=== PATIENT | female | born 1935 | race African-American/Black ===

== ENCOUNTER 2017-06-04 07:28 | Emergency (ER) | payer OTHER ==
[~2017-06-04] VITALS: Ht 157.5 cm; Wt 181.4 kg
[~2017-06-04 07:28] MED LIST: 8 HOUR C500 MG PO; ACETAMINOPHEN PO; ACETAMINOPHEN325 M1 GT; ACETAMINOPHEN650 M7 PO; ACIDOPHILUS1 EAC4 GT; ADVAIR HFA120 INHALA IH; ALPRAZOLAM0.25 M2 GT; AMBIEN5 MG PO; AMIKACIN IV; AQUAPHOR W-NAT50 GM TP; ARTIFICIAL TEAR15 M1 BOTH EYES; ASCORBIC ACID250 MG PO; ATIVAN1 MG PO; Advair HFA 115/21 IH; Ascorbic Acid,Ester- PO; BACTRIM,SEPT1 TABLET GT; BACTRIM,SEPT1 TABLET PO; BISAC-EVAC10 MG PR; CALCIUM CITRAT1 EA14 GT; CALCIUM600 M1 GT; CALTRATE 600 +1 EAC1 GT; CALTRATE 600+D1 EACH; CALTRATE 6001 TABLE1 GT; CALTRATE 600600 MG PO; CARDIZEM CD,CA180 MG PO; CARDIZEM CD180 MG PO; CARDIZEM60 MG GT; CARDIZEM60 MG PO; CARDIZEM90 MG GT; CERTA-VITE240 ML GT; CERTA-VITE240 ML PO; CHLORHEXIDINE473 ML PO; COLACE10 MG/ML GT; COLACE100 MG PO; COMBIGAN O20 DROP/5 BOTH EYES; COUGH CONT100 MG/5 M GT; COUGH SYRU100 MG/5 M GT; COUMADIN,JANTOVE2 MG PO; COUMADIN1 MG GT; COUMADIN1 MG PO; COUMADIN10 MG PO; COUMADIN3 MG PO; COUMADIN4 MG GT; COUMADIN6 MG GT; COUMADIN6 MG PO; COUMADIN7.5 MG PO; CRANBERRY400 M1 GT; Colace PO; Combigan Ophth Soln BOTH EYES; Coumadin Protocol PO; DELSYM30 MG/5 M1 PO; DEXTROSE 50%50 ML IV; DIGITEK125 MC2 GT; DIGOX125 MCG GT; DIGOX250 MCG GT; DIGOX250 MCG PO; DIGOXIN125 MCG PO; DIGOXIN250 MCG PO; DIOVAN40 MG PO; DOCU LIQUI50 MG/5 ML GT; DOCUSATE SODIU100 MG PO; DORIBAX500 MG IV; DULCOLAX10 MG PR; DUONEB 2.5-0.5 M3 ML AEROSOL; DUONEB 2.5-0.5 M3 ML IH; ESCITALOPRAM OX20 MG GT; FEOSOL300 MG/5 M PO; FEOSOL325 MG PO; FEOSOL44 MG/ML PO; FEROSUL325 MG GT; FERROUS SULFAT325 MG GT; FERROUS SULFAT325 MG PO; FLORANEX CHE1 TABLET GT; FLORANEX GRANU1 EACH GT; FLORANEX GRANU1 EACH PO; FUROSEMIDE40 MG GT; GENTAMICIN IV; GLUCAGEN1 M1 PO; GLUCAGEN1 MG IM; GUAIFENESIN AC PO; HYDRALAZINE HCL25 MG GT; HYDROCIL INSTA1 EAC1 PO; IOPHEN NR100 MG/5 M; IRON325 M1 GT; JANTOVEN3 MG PO; K-DUR20 MEQ GT; K-DUR20 MEQ PO; KLOR-CON M2020 MEQ GT; KLOR-CON M2020 MEQ PO; KLOR-CON20 MEQ GT; KLOR-CON20 MEQ PO; LANTUS (UNITS)1 UNIT SC; LASIX40 MG GT; LASIX40 MG PO; LATANOPROST2.5 ML BOTH EYES; LAXATIVE SUPPOS10 MG PR; LEVEMIR FL100 UNIT/1 SC; LEVEMIR100 UNIT/2 SC; LEXAPRO20 MG GT; LEXAPRO20 MG PO; LISINOPRIL5 MG PO; LOMOTIL TABLET1 EACH PO; LORATADINE10 M2 PO; LORAZEPAM0.5 MG PO; LUMIGAN 0.50 DROP/22 BOTH EYES; Lasix PO; Lexapro PO; MEROPENEM1 GM IV; METFORMIN HCL1000 MG PO; MEXSANA330 GM TP; MILK OF MAGN PO; MIRALAX17 GM PO; MUCINEX D ER T1 EACH PO; MUCOMYST 20200 MG/ML IH; MUTIVITAMIN PO; NEBCIN40 MG/ML IV; NOVOLIN N100 UNITS/ SC; NOVOLOG 10100 UNITS/ SC; OS-CAL 500+D T1 EAC1 PO; PAIN RELIEF650 MG GT; PHILLIPS'400 MG/5 M PO; POTASSIUM CHLO20 ME2 GT; POTASSIUM CHLO20 MEQ GT; PREDNISONE20 MG GT; PREDNISONE20 MG PO; PREDNISONE5 MG PO; PREVACID SOLUTA30 MG GT; PREVACID SOLUTA30 MG PO; PREVACID30 MG PO; PRILOSEC40 MG PO; PROPOXYPHENE PO; PSEUDOEPHEDRINE60 MG PO; RANITIDINE HCL150 MG GT; RANITIDINE HCL150 MG PO; RISPERDAL3 MG PO; RISPERIDONE4 MG PO; ROBITUSSIN100 MG/5 M PO; SENNA-GEN8.6 MG GT; SENNA8.6 M1 GT; SENNA8.6 MG GT; SENNA8.6 MG PO; SILTUSSIN100 MG/51 GT; SILVER SULFADIA50 GM TP; SOLU-MEDRO40 MG/1 ML IV; TOBRAMYCIN60 MG/50 M IV; TYLENOL REGULA325 MG GT; TYLENOL REGULA325 MG PO; ULTRAM50 MG PO; VANCOCIN 250 M250 MG GT; VANCOMYCIN HCL1 GM IV; VITAMIN C100 MG/1 M GT; VITAMIN C500 MG/15 GT; VITAMIN D1000 INTUN PO; VITAMIN D1000 UNIT GT; VITAMIN D31000 UNIT PO; Vitamin D PO; WELLBUTRIN100 MG PO; XALATAN 0.50 DROP/2. BOTH EYES; XALATAN2.5 ML BOTH EYES; XANAX0.25 MG GT; XANAX0.5 MG GT; XARELTO20 MG GT; Xylocaine 5% TP; ZANTAC150 MG GT; ZOSYN 3.373.375 GM/5 IV; ZOSYN 4.5 GRAM4.5 GM IV; [UNRECOGNIZED DRUG - OTHER] TP
[2017-06-04 08:00] LABS: HEMATOCRIT 29.2 % (36.0-46.0); MCH 31.2 PG (29.0-34.0); MCHC 32.9 G/DL (30.0-36.0); MCV 94.8 FL (83-99); MEAN PLAT.VOLUME 9.6 uM^3 (9.5-12.4); PLATELET COUNT 106 K/uL (156-360); RBC DIS.WIDTH-CV 14.2 % (11.8-14.6); RBC DIS.WIDTH-SD 49.4 % (39-53); RED BLOOD COUNT 3.08 M/uL (3.80-5.20); WHITE BLOOD COUNT 14.9 K/uL (4.1-10.2)
[2017-06-04 08:26] LABS: ANION GAP 5 MEQ/L (2-14); CHLORIDE 107 MEQ/L (99-109); POTASSIUM 4.8 MEQ/L (3.7-5.4); SAMPLE HEMOLYSIS CHECK 0; SAMPLE ICTERIC CHECK 0; SAMPLE LIPEMIA CHECK 0; SODIUM 139 MEQ/L (136-147)
[2017-06-04 08:32] LABS: GFR ESTIMATE (CALCULATED) > 59 mL/min/; GLUCOSE 125 mg/dL (70-99); UREA NITROGEN (BUN) 34 mg/dL (9-23)
[2017-06-04 08:35] LABS: TROP-I INTERPRETATION NEGATIVE; TROPONIN-I 0.07 ng/mL (0.0-0.30)
[2017-06-04 08:37] LABS: DIGOXIN 0.6 ng/mL (0.8-2.0)
[2017-06-04 09:19] LABS: ADD MIUA? YES; BILIRUBIN NEGATIVE; BLOOD MODERATE; COLOR YELLOW ((YELLOW)); GLUCOSE (STRIP) NEGATIVE; KETONES NEGATIVE; LEUKOCYTES LARGE; NITRITE NEGATIVE; PROTEIN (STRIP) 100; UROBILINOGEN 0.2 MG/DL (0.2-1.0)
[2017-06-04 09:24] LABS: BACTERIA 3+ /HPF; EPITHELIAL CELLS RARE /HPF; MUCUS TRACE /LPF; RED BLOOD CELLS 20-30 /HPF (0-5)
[2017-06-04 09:25] LABS: WHITE BLOOD CELLS 30-40 /HPF (0-5)
[2017-06-04] MEDS ORDERED: KEFLEX500 MG PO (11:30)
[2017-06-04 13:06] VITALS: BP 140/65
== END 2017-06-04 13:14 ==
LOC: EME 07:28
PROVIDERS: Nurse Practitioner Family
DX: R41.82 Altered mental status, unspecified (principal); N39.0 Urinary tract infection, site not specified; E11.65 Type 2 diabetes mellitus with hyperglycemia; D72.829 Elevated white blood cell count, unspecified; J44.9 Chronic obstructive pulmonary disease, unspecified; Z99.11 Dependence on respirator [ventilator] status; I48.91 Unspecified atrial fibrillation; E66.01 Morbid (severe) obesity due to excess calories; Z87.442 Personal history of urinary calculi; Z86.718 Personal history of other venous thrombosis and embolism; Z79.01 Long term (current) use of anticoagulants; F32.9 Major depressive disorder, single episode, unspecified; F41.9 Anxiety disorder, unspecified; K21.9 Gastro-esophageal reflux disease without esophagitis; Z88.6 Allergy status to analgesic agent; Z79.4 Long term (current) use of insulin
CPT/HCPCS: 70450; 71010; 80048; 80162; 81003; 83605; 84484; 85027; 87077; 87086; 87186; 93005; 94002; 94640; 99281; 99285; J0696

== ENCOUNTER 2017-09-25 03:23 | Inpatient (IN) | payer OTHER ==
[~2017-09-25] VITALS: Ht 170.2 cm; Wt 115.3 kg
[2017-09-25] VITALS (11 sets, daily range): BP systolic 161–206; BP diastolic 65–132
[~2017-09-25 03:23] MED LIST changes: +C-500500 M1 GT; +CERTA VITE9 MG/15 ML GT; -COUGH CONT100 MG/5 M GT; +FEROSUL220 MG/51 GT; +KEFLEX500 MG PO; +PREDNISONE10 MG PO; +PRILOSEC20 MG GT; +XARELTO15 MG GT; +ZITHROMAX500 MG GT; +ZOFRAN4 MG GT; +ZOSYN 3.3753.375 GM IV
[2017-09-25 03:58] LABS: BASOPHIL COUNT 0.1 K/uL (0-0.1); EOSINOPHIL (%) 0.7 % (0-5); EOSINOPHIL COUNT 0.1 K/uL (0-0.3); HEMATOCRIT 29.6 % (36.0-46.0); IMMATURE GRANULOCYTE (%) 1.4 % (0.0-0.7); IMMATURE GRANULOCYTE COUNT 0.2 K/uL; INSTRUMENT ABS NEUTROPHIL CT 10.6 K/uL; LYMPHOCYTE COUNT 2.5 K/uL (1.0-2.8); MCH 30.1 PG (29.0-34.0); MCHC 32.8 G/DL (30.0-36.0); MCV 91.9 FL (83-99); MONOCYTE (%) 7.9 % (3-12); MONOCYTE COUNT 1.2 K/uL (0-0.8); NEUTROPHIL (%) 72.6 % (45-76); NEUTROPHIL COUNT 10.6 K/uL (1.8-6.4); PLATELET COUNT 165 K/uL (156-360); RBC DIS.WIDTH-SD 54.4 % (39-53); RED BLOOD COUNT 3.22 M/uL (3.80-5.20); WHITE BLOOD COUNT 14.6 K/uL (4.1-10.2)
[2017-09-25 04:14] LABS: CHLORIDE 101 mEq/L (99-109); POTASSIUM 4.3 mEq/L (3.7-5.4); SODIUM 137 mEq/L (136-147)
[2017-09-25 04:16] LABS: GLUCOSE 108 mg/dL (70-99)
[2017-09-25 04:18] LABS: BASE EXCESS 6.9 mEq/L (-3 to +3); BICARBONATE 31.3 mEq/L (22-26); CARBOXY HGB 2.4 % (0-5); METHEMOGLOBIN 1.2 % (0-1.5); PO2 49 mm Hg (80-100); pH 7.47 (7.35-7.45)
[2017-09-25 04:18] LABS: ANION GAP 8 MEQ/L (2-14); TOTAL BILIRUBIN 0.5 mg/dL (0.0-1.0)
[2017-09-25 04:20] LABS: ALKALINE PHOSPHATASE 88 IU/L (3-129); GFR ESTIMATE (CALCULATED) > 59 mL/min/
[2017-09-25 04:21] LABS: UREA NITROGEN (BUN) 32 mg/dL (9-23)
[2017-09-25 04:21] LABS: PCO2 43 mm Hg (35-45); SITE LR
[2017-09-25 04:22] LABS: COMMENTS - BLOOD GASES A+C+; DEVICE VENT; FI02 40 %; MECHANICAL RATE 20 resp/min; MODE AC; PEEP 5 CM/H20; TIDAL VOLUME 600 ML; TOTAL RESP RATE 20 resp/min
[2017-09-25 04:24] LABS: TROP-I INTERPRETATION NEGATIVE; TROPONIN-I 0.03 ng/mL (0.0-0.30)
[2017-09-25] MEDS ORDERED: FUROSEMIDE40 MG GT (08:12)
[2017-09-25] MEDS ORDERED: VITAMIN D-32000 UNI2 GT (08:13)
[2017-09-25 09:44] LABS: METH RESISTANT S AUREUS PCR POSITIVE (NEGATIVE)
[2017-09-25 09:45] LABS: PROBE CHECK PASS
[2017-09-25 12:43] LABS: ADD MIUA? YES; BILIRUBIN NEGATIVE; BLOOD SMALL; COLOR STRAW ((YELLOW)); GLUCOSE (STRIP) NEGATIVE; KETONES NEGATIVE; LEUKOCYTES NEGATIVE; NITRITE NEGATIVE; PROTEIN (STRIP) 30; SPECIFIC GRAVITY 1.004 (1.000-1.030); UROBILINOGEN 0.2 MG/DL (0.2-1.0)
[2017-09-25 12:55] LABS: BACTERIA NONE SEEN /HPF; EPITHELIAL CELLS NONE SEEN /HPF; MUCUS NONE SEEN /LPF; RED BLOOD CELLS 0-5 /HPF (0-5); UCUL ADDED? NO; WHITE BLOOD CELLS 0-5 /HPF (0-5)
[2017-09-26] VITALS: BP 161/66
[2017-09-26 00:07] LABS: POINT-OF-CARE METER ID UU14314083
[2017-09-26 04:00] VITALS: BP 133/53
[2017-09-26 05:30] LABS: EOSINOPHIL (%) 0 % (0-5); HEMATOCRIT 28.1 % (36.0-46.0); IMMATURE GRANULOCYTE (%) 2.1 % (0.0-0.7); IMMATURE GRANULOCYTE COUNT 0.2 K/uL; INSTRUMENT ABS NEUTROPHIL CT 6.4 K/uL; LYMPHOCYTE COUNT 1.4 K/uL (1.0-2.8); MCH 29.7 PG (29.0-34.0); MCHC 33.5 G/DL (30.0-36.0); MCV 88.9 FL (83-99); MEAN PLAT.VOLUME 9.7 uM^3 (9.5-12.4); MONOCYTE (%) 2.2 % (3-12); MONOCYTE COUNT 0.2 K/uL (0-0.8); NEUTROPHIL (%) 78.4 % (45-76); NEUTROPHIL COUNT 6.4 K/uL (1.8-6.4); PLATELET COUNT 155 K/uL (156-360); RBC DIS.WIDTH-CV 15.7 % (11.8-14.6); RBC DIS.WIDTH-SD 51.1 % (39-53); RED BLOOD COUNT 3.16 M/uL (3.80-5.20); WHITE BLOOD COUNT 8.2 K/uL (4.1-10.2)
[2017-09-26 05:56] LABS: ANION GAP 10 MEQ/L (2-14); CHLORIDE 104 MEQ/L (99-109); GFR ESTIMATE (CALCULATED) > 59 mL/min/; SAMPLE HEMOLYSIS CHECK 0; SAMPLE ICTERIC CHECK 0; SAMPLE LIPEMIA CHECK 0; SODIUM 141 MEQ/L (136-147); UREA NITROGEN (BUN) 37 mg/dL (9-23)
[2017-09-26 06:00] VITALS: BP 135/47
[2017-09-26 06:09] LABS: GLUCOSE 184 mg/dL (70-99)
[2017-09-26 08:10] LABS: INTERNAL CONTROL VALID? YES
[2017-09-26] MEDS ORDERED: CLONIDINE HCL0.1 MG PO (08:37)
[2017-09-26] MEDS ORDERED: LASIX40 MG PO (08:39)
[2017-09-26] MEDS ORDERED: HYDRALAZINE HCL50 MG PO (08:45)
[2017-09-26 10:00] VITALS: BP 146/58
[2017-09-26 12:00] VITALS: BP 168/74
== END 2017-09-26 13:17 | DRG 208 ==
LOC: EME 03:23 → EDOF 06:18 → 4WEST 06:18 → ENRESERV 06:19 → 4WEST 07:45
PROVIDERS: Emergency Medicine; Hospitalist
PROC: 5A1945Z Respiratory Ventilation, 24-96 Consecutive Hours (ICD-10-PCS; principal; 2017-09-25)
DX: J96.21 Acute and chronic respiratory failure with hypoxia (principal); I11.0 Hypertensive heart disease with heart failure; I50.33 Acute on chronic diastolic (congestive) heart failure; J44.9 Chronic obstructive pulmonary disease, unspecified; E11.9 Type 2 diabetes mellitus without complications; F03.90 Unspecified dementia, unspecified severity, without behavioral disturbance, psychotic disturbance, mood disturbance, and anxiety; F32.9 Major depressive disorder, single episode, unspecified; F41.9 Anxiety disorder, unspecified; G47.30 Sleep apnea, unspecified; H40.9 Unspecified glaucoma; I27.20 Pulmonary hypertension, unspecified; I48.0 Paroxysmal atrial fibrillation; K21.9 Gastro-esophageal reflux disease without esophagitis; E66.01 Morbid (severe) obesity due to excess calories; Z93.0 Tracheostomy status; Z99.11 Dependence on respirator [ventilator] status; Z86.718 Personal history of other venous thrombosis and embolism; Z68.41 Body mass index [BMI] 40.0-44.9, adult; Z79.01 Long term (current) use of anticoagulants; Z86.711 Personal history of pulmonary embolism; Z88.6 Allergy status to analgesic agent; Z93.1 Gastrostomy status
CPT/HCPCS: 36600; 71010; 80048; 80053; 80200; 81003; 82803; 82948; 83605; 83880; 84484; 85025; 87040; 87070; 87077; 87081; 87186; 87205; 87449; 87502; 87641; 93005; 94003; 94640 76; 94667; 94668; 99202; 99281; 99285; J0360; J0692; J1940; J2543; J2930; J3260; J3370; J7050

== ENCOUNTER 2017-10-28 12:14 | Emergency (ER) | payer OTHER ==
[~2017-10-28] VITALS: Ht 165.1 cm; Wt 111.0 kg
[~2017-10-28 12:14] MED LIST changes: +CLONIDINE HCL0.1 MG PO; +HYDRALAZINE HCL50 MG PO; +VITAMIN D-32000 UNI2 GT
[2017-10-28 14:29] LABS: BASOPHIL (%) 0.5 % (0-1); BASOPHIL COUNT 0.1 K/uL (0-0.1); EOSINOPHIL (%) 0.3 % (0-5); HEMATOCRIT 25.8 % (36.0-46.0); HEMOGLOBIN 8.4 G/DL (11.9-15.5); IMMATURE GRANULOCYTE (%) 0.4 % (0.0-0.7); LYMPHOCYTE (%) 22.4 % (15-42); LYMPHOCYTE COUNT 2.8 K/uL (1.0-2.8); MCH 29.6 PG (29.0-34.0); MCHC 32.6 G/DL (30.0-36.0); MCV 90.8 FL (83-99); MONOCYTE (%) 8.3 % (3-12); NEUTROPHIL (%) 68.1 % (45-76); NEUTROPHIL COUNT 8.4 K/uL (1.8-6.4); PLATELET COUNT 170 K/uL (156-360); RBC DIS.WIDTH-CV 15.2 % (11.8-14.6); RBC DIS.WIDTH-SD 50.6 % (39-53); RED BLOOD COUNT 2.84 M/uL (3.80-5.20); WHITE BLOOD COUNT 12.4 K/uL (4.1-10.2)
[2017-10-28 14:37] LABS: CHLORIDE 104 mEq/L (99-109); POTASSIUM 3.7 mEq/L (3.7-5.4); SODIUM 142 mEq/L (136-147)
[2017-10-28 14:39] LABS: GLUCOSE 93 mg/dL (70-99)
[2017-10-28 14:43] LABS: GFR ESTIMATE (CALCULATED) > 59 mL/min/
[2017-10-28 14:44] LABS: UREA NITROGEN (BUN) 39 mg/dL (9-23)
[2017-10-28 17:51] VITALS: BP 168/72
== END 2017-10-28 17:55 ==
LOC: EME 12:14
PROVIDERS: Emergency Medicine
DX: J44.9 Chronic obstructive pulmonary disease, unspecified (principal); J98.8 Other specified respiratory disorders; K21.9 Gastro-esophageal reflux disease without esophagitis; E11.9 Type 2 diabetes mellitus without complications; I50.9 Heart failure, unspecified; M19.90 Unspecified osteoarthritis, unspecified site; H40.9 Unspecified glaucoma; F41.9 Anxiety disorder, unspecified; F32.9 Major depressive disorder, single episode, unspecified; Z79.01 Long term (current) use of anticoagulants; Z99.11 Dependence on respirator [ventilator] status; Z86.718 Personal history of other venous thrombosis and embolism; Z85.9 Personal history of malignant neoplasm, unspecified; Z88.6 Allergy status to analgesic agent
CPT/HCPCS: 71045; 80048; 85025; 87070; 87186; 87205; 93005; 94002; 99281; 99284

== ENCOUNTER 2017-11-07 22:47 | Inpatient (IN) | payer OTHER ==
[~2017-11-07] VITALS: Ht 167.6 cm; Wt 109.0 kg
[2017-11-07 23:42] LABS: HEMATOCRIT 26.8 % (36.0-46.0); HEMOGLOBIN 8.5 G/DL (11.9-15.5); MCHC 31.7 G/DL (30.0-36.0); MCV 94.7 FL (83-99); PLATELET COUNT 172 K/uL (156-360); RBC DIS.WIDTH-CV 15.9 % (11.8-14.6); RBC DIS.WIDTH-SD 54.8 % (39-53); RED BLOOD COUNT 2.83 M/uL (3.80-5.20); WHITE BLOOD COUNT 13.9 K/uL (4.1-10.2)
[2017-11-07 23:53] LABS: CHLORIDE 101 mEq/L (99-109); POTASSIUM 4.1 mEq/L (3.7-5.4); SODIUM 142 mEq/L (136-147)
[2017-11-07 23:55] LABS: GLUCOSE 133 mg/dL (70-99)
[2017-11-07 23:59] LABS: CREATININE 0.9 mg/dL (0.6-1.3); GFR ESTIMATE (CALCULATED) > 59 mL/min/
[2017-11-08] VITALS (18 sets, daily range): BP systolic 135–198; BP diastolic 51–116
[2017-11-08] LABS: UREA NITROGEN (BUN) 42 mg/dL (9-23)
[2017-11-08 00:03] LABS: TROP-I INTERPRETATION NEGATIVE; TROPONIN-I 0.05 ng/mL (0.0-0.30)
[2017-11-08] MEDS ORDERED: TAMIFLU75 MG PO (01:23)
[2017-11-08] MEDS ORDERED: CENTRUM SILVER1 EAC4 PO (01:28)
[2017-11-08 02:21] LABS: BICARBONATE 34.4 mEq/L (22-26); CARBOXY HGB 1.9 % (0-5); METHEMOGLOBIN 1.2 % (0-1.5); PCO2 35 mm Hg (35-45); PO2 153 mm Hg (80-100)
[2017-11-08 02:22] LABS: COMMENTS - BLOOD GASES C+A+; DEVICE VENT; FI02 60 %; MECHANICAL RATE 20 resp/min; MODE AC; PEEP 5 CM/H20; SITE RR; TIDAL VOLUME 600 ML; TOTAL RESP RATE 20 resp/min
[2017-11-08 06:16] LABS: BASE EXCESS 9.9 mEq/L (-3 to +3); BICARBONATE 35.3 mEq/L (22-26); CARBOXY HGB 2.3 % (0-5); COMMENTS - BLOOD GASES C+; DEVICE VENT; FI02 40 %; INSPIRATION TIME 0.8 seconds; MECHANICAL RATE 20 resp/min; METHEMOGLOBIN 1.3 % (0-1.5); MODE ACVC+; PCO2 52 mm Hg (35-45); PO2 69 mm Hg (80-100); SITE LR; TIDAL VOLUME 400 ML; TOTAL RESP RATE 35 resp/min; pH 7.44 (7.35-7.45)
[2017-11-08 06:17] LABS: PEEP 5 CM/H20
[2017-11-08 14:03] LABS: HEMOGLOBIN A1c (GLYCOHEMOGLOB) 4.6 % (Below 5.7)
[2017-11-09] VITALS (28 sets, daily range): BP systolic 95–194; BP diastolic 40–126
[2017-11-09 05:47] LABS: HEMATOCRIT 26.6 % (36.0-46.0); HEMOGLOBIN 8.4 G/DL (11.9-15.5); MCH 29.9 PG (29.0-34.0); MCHC 31.6 G/DL (30.0-36.0); MCV 94.7 FL (83-99); PLATELET COUNT 164 K/uL (156-360); RBC DIS.WIDTH-CV 16.3 % (11.8-14.6); RBC DIS.WIDTH-SD 56.7 % (39-53); RED BLOOD COUNT 2.81 M/uL (3.80-5.20)
[2017-11-09 06:09] LABS: CHLORIDE 103 MEQ/L (99-109); CREATININE 1.1 MG/DL (0.6-1.3); GFR ESTIMATE (CALCULATED) > 59 mL/min/; GLUCOSE 105 mg/dL (70-99); SODIUM 145 MEQ/L (136-147); UREA NITROGEN (BUN) 46 mg/dL (9-23)
[2017-11-09 13:49] LABS: BASE EXCESS 11.5 mEq/L (-3 to +3); BICARBONATE 37.2 mEq/L (22-26); METHEMOGLOBIN 1.6 % (0-1.5); PCO2 56 mm Hg (35-45); PO2 57 mm Hg (80-100); pH 7.43 (7.35-7.45)
[2017-11-09 13:50] LABS: COMMENTS - BLOOD GASES A+C+; DEVICE 840; FI02 40 %; MECHANICAL RATE 20 resp/min; MODE AC; PEEP 5 CM/H20; SITE LR; TIDAL VOLUME 400 ML; TOTAL RESP RATE 21 resp/min
[2017-11-10] VITALS (23 sets, daily range): BP systolic 95–168; BP diastolic 42–92
[2017-11-10] MEDS ORDERED: TOBRAMYCIN40 MG/1 M1 IH (08:35)
[2017-11-10] MEDS ORDERED: DUONEB 2.5-0.5 M3 ML AEROSOL (08:37)
[2017-11-11] VITALS (16 sets, daily range): BP systolic 105–146; BP diastolic 45–70
[2017-11-12] VITALS (13 sets, daily range): BP systolic 122–168; BP diastolic 24–82
[2017-11-12 05:21] LABS: BASE EXCESS 12.3 mEq/L (-3 to +3); BICARBONATE 37.2 mEq/L (22-26); COMMENTS - BLOOD GASES C+; DEVICE VENT; FI02 40 %; MECHANICAL RATE 20 resp/min; METHEMOGLOBIN 1.6 % (0-1.5); MODE AC; PCO2 50 mm Hg (35-45); PEEP 5 CM/H20; PO2 65 mm Hg (80-100); SITE LB; TIDAL VOLUME 400 ML; TOTAL RESP RATE 20 resp/min; pH 7.48 (7.35-7.45)
[2017-11-12 06:54] LABS: BASOPHIL (%) 0.5 % (0-1); EOSINOPHIL COUNT 0.2 K/uL (0-0.3); HEMATOCRIT 26.6 % (36.0-46.0); HEMOGLOBIN 8.2 G/DL (11.9-15.5); IMMATURE GRANULOCYTE (%) 0.5 % (0.0-0.7); LYMPHOCYTE (%) 24.1 % (15-42); LYMPHOCYTE COUNT 2.1 K/uL (1.0-2.8); MCH 29.6 PG (29.0-34.0); MCHC 30.8 G/DL (30.0-36.0); MONOCYTE (%) 11.1 % (3-12); NEUTROPHIL (%) 61.8 % (45-76); NEUTROPHIL COUNT 5.4 K/uL (1.8-6.4); NRBC (%) 0.2 /100 WBC (0-0); PLATELET COUNT 146 K/uL (156-360); RBC DIS.WIDTH-CV 16.8 % (11.8-14.6); RBC DIS.WIDTH-SD 58.5 % (39-53); RED BLOOD COUNT 2.77 M/uL (3.80-5.20); WHITE BLOOD COUNT 8.7 K/uL (4.1-10.2)
[2017-11-12 07:20] LABS: ALBUMIN 2.8 G/DL (3.2-4.8); ALKALINE PHOSPHATASE 81 IU/L (3-129); ALT (GPT) 42 IU/L (3-49); AST (GOT) 38 IU/L (2-34); CHLORIDE 105 MEQ/L (99-109); CREATININE 1.2 MG/DL (0.6-1.3); GFR ESTIMATE (CALCULATED) 56 mL/min/; GLUCOSE 120 mg/dL (70-99); MAGNESIUM 2.3 mg/dl (1.3-2.7); PHOSPHORUS 3.9 mg/dL (2.5-4.9); POTASSIUM 3.8 MEQ/L (3.7-5.4); SODIUM 145 MEQ/L (136-147); TOTAL BILIRUBIN 0.9 MG/DL (0.0-1.0); TOTAL PROTEIN 5.3 G/DL (6.4-8.3); UREA NITROGEN (BUN) 52 mg/dL (9-23)
[2017-11-13] VITALS (10 sets, daily range): BP systolic 127–183; BP diastolic 41–86
[2017-11-13 06:45] LABS: BASOPHIL (%) 0.7 % (0-1); BASOPHIL COUNT 0.1 K/uL (0-0.1); EOSINOPHIL (%) 2.4 % (0-5); EOSINOPHIL COUNT 0.2 K/uL (0-0.3); HEMATOCRIT 26.4 % (36.0-46.0); HEMOGLOBIN 8.2 G/DL (11.9-15.5); IMMATURE GRANULOCYTE (%) 0.5 % (0.0-0.7); LYMPHOCYTE (%) 26.2 % (15-42); MCH 29.6 PG (29.0-34.0); MCHC 31.1 G/DL (30.0-36.0); MCV 95.3 FL (83-99); MONOCYTE (%) 11.3 % (3-12); MONOCYTE COUNT 0.8 K/uL (0-0.8); NEUTROPHIL (%) 58.9 % (45-76); NEUTROPHIL COUNT 4.4 K/uL (1.8-6.4); PLATELET COUNT 149 K/uL (156-360); RBC DIS.WIDTH-CV 16.8 % (11.8-14.6); RBC DIS.WIDTH-SD 57.6 % (39-53); RED BLOOD COUNT 2.77 M/uL (3.80-5.20); WHITE BLOOD COUNT 7.4 K/uL (4.1-10.2)
[2017-11-13 07:23] LABS: ALBUMIN 2.9 G/DL (3.2-4.8); ALKALINE PHOSPHATASE 83 IU/L (3-129); ALT (GPT) 43 IU/L (3-49); AST (GOT) 31 IU/L (2-34); CHLORIDE 104 MEQ/L (99-109); CREATININE 1.2 MG/DL (0.6-1.3); GFR ESTIMATE (CALCULATED) 56 mL/min/; GLUCOSE 106 mg/dL (70-99); MAGNESIUM 2.5 mg/dl (1.3-2.7); POTASSIUM 3.7 MEQ/L (3.7-5.4); SODIUM 146 MEQ/L (136-147); TOTAL BILIRUBIN 0.9 MG/DL (0.0-1.0); TOTAL PROTEIN 5.5 G/DL (6.4-8.3); UREA NITROGEN (BUN) 51 mg/dL (9-23)
== END 2017-11-13 14:42 | DRG 166 ==
LOC: EME → EDBD 22:47 → EME 22:47 → 4WEST 11-08 02:06 → EDOF 11-08 02:06 → 4WEST 11-08 02:06 → ENRESERV 11-08 02:07 → 4WEST 11-08 03:45
PROVIDERS: Internal Medicine; Physician Assistant; Surgery
DX: J95.03 Malfunction of tracheostomy stoma (principal); J96.21 Acute and chronic respiratory failure with hypoxia; J96.22 Acute and chronic respiratory failure with hypercapnia; Z99.11 Dependence on respirator [ventilator] status; J44.1 Chronic obstructive pulmonary disease with (acute) exacerbation; J18.9 Pneumonia, unspecified organism; J44.0 Chronic obstructive pulmonary disease with (acute) lower respiratory infection; E87.4 Mixed disorder of acid-base balance; J84.10 Pulmonary fibrosis, unspecified; I11.0 Hypertensive heart disease with heart failure; I50.32 Chronic diastolic (congestive) heart failure; I48.0 Paroxysmal atrial fibrillation; I27.29 Other secondary pulmonary hypertension; L89.309 Pressure ulcer of unspecified buttock, unspecified stage; D63.8 Anemia in other chronic diseases classified elsewhere; J98.11 Atelectasis; K21.9 Gastro-esophageal reflux disease without esophagitis; E11.9 Type 2 diabetes mellitus without complications; E66.01 Morbid (severe) obesity due to excess calories; Z68.38 Body mass index [BMI] 38.0-38.9, adult; G47.30 Sleep apnea, unspecified; H40.9 Unspecified glaucoma; L80 Vitiligo; M19.90 Unspecified osteoarthritis, unspecified site; F32.9 Major depressive disorder, single episode, unspecified; F41.9 Anxiety disorder, unspecified; Z93.1 Gastrostomy status; Z74.01 Bed confinement status; Z87.01 Personal history of pneumonia (recurrent); Z87.442 Personal history of urinary calculi; Z86.19 Personal history of other infectious and parasitic diseases; Z87.19 Personal history of other diseases of the digestive system; Z88.6 Allergy status to analgesic agent; Z86.711 Personal history of pulmonary embolism; Z79.01 Long term (current) use of anticoagulants
CPT/HCPCS: 36600; 71045; 80048; 80053; 82803; 82948; 83036; 83605; 83735; 83880; 84100; 84484; 85025; 85027; 87040; 87070; 87077; 87081; 87185; 87186; 87205; 87641; 93005; 94002; 94003; 94640; 94640 76; 94668; 99202; 99281; 99285; J1815; J1956; J2405; J2704; J2930; J3010; J3260

== ENCOUNTER → 2018-04-13 | Outpatient (CLI) | payer OTHER ==
[~2018-04-13] MED LIST changes: +CENTRUM SILVER1 EAC4 PO; +TAMIFLU75 MG PO; +TOBRAMYCIN40 MG/1 M1 IH
== END | disposition home or self-care (01) ==
LOC: RAD 08:30
DX: J90 Pleural effusion, not elsewhere classified (principal); I31.3 Pericardial effusion (noninflammatory); D73.9 Disease of spleen, unspecified; R91.8 Other nonspecific abnormal finding of lung field; Z99.11 Dependence on respirator [ventilator] status
CPT/HCPCS: 71250; 94002